=== PATIENT | male | born 1970 | race Caucasian/White ===

== ENCOUNTER 2021-10-25 15:40 | Emergency (ER) | payer OTHER ==
[2021-10-25] MEDS ORDERED: Sodium Chloride 0.9% 10 ML Syringe FLUSH PRN (18:11)
[2021-10-25] MEDS ORDERED: Acetaminophen 325 MG Tab PO ONE (18:13)
[2021-10-25] MEDS ORDERED: Sodium Chloride 0.9% 1,000 ML IV SCH (18:15)
== END 2021-10-25 20:40 | disposition home or self-care (01) ==
LOC: JD.ED 15:40
DX: U07.1 COVID-19 (principal); I10 Essential (primary) hypertension; K21.9 Gastro-esophageal reflux disease without esophagitis; F17.210 Nicotine dependence, cigarettes, uncomplicated; Z88.0 Allergy status to penicillin; Z79.82 Long term (current) use of aspirin; Z79.899 Other long term (current) drug therapy
CPT/HCPCS: 36415; 71045; 80053; 81003; 83605; 85007; 85027; 86140; 87040; 87635; 96360; 99283; A9270; J3490; J7030; U0002

== ENCOUNTER 2022-08-29 12:37 | Inpatient (IN) | payer BC ==
[2022-08-29] MEDS ORDERED: Ondansetron 4 MG/2 ML SDV IVPUSH ONE (13:05)
[2022-08-29] MEDS ORDERED: Sodium Chloride 0.9% 1,000 ML IV STA (13:05)
[2022-08-29] MEDS ORDERED: Sodium Chloride 0.9% 10 ML Syringe FLUSH PRN (13:05)
[2022-08-29] MEDS ORDERED: HYDROmorphone 0.5 MG/0.5 ML Syringe IVPUSH ONE (13:06)
[2022-08-29 13:18] LABS: BASOPHILS ABSOLUTE AUTO 0.03 K/mm3 (0.01-0.08); BASOPHILS PERCENT AUTO 0.3 % (0.1-1.2); EOSINOPHILS ABSOLUTE AUTO 0.14 K/mm3 (0.04-0.54); EOSINOPHILS PERCENT AUTO 1.5 (0.8-7.0); HEMATOCRIT 44.5 % (40.1-51.0); HEMOGLOBIN 15.1 gm/dl (13.7-17.5); IMMATURE GRAN ABSOLUTE AUTO 0.01 K/mm3 (0.00-0.10); IMMATURE GRAN PERCENT AUTO 0.1 % (<=1.0); LYMPHOCYTES ABSOLUTE AUTO 0.98 K/mm3 (1.32-3.57); LYMPHOCYTES PERCENT AUTO 10.6 % (21.8-53.1); MEAN CORPUSCULAR HEMOGLOBIN 30.5 pg (25.7-32.2); MEAN CORPUSCULAR HGB CONC 33.9 g/dl (32.2-35.5); MEAN CORPUSCULAR VOLUME 89.9 fl (79.0-92.2); MEAN PLATELET VOLUME 9.8 fl (9.4-12.3); MONOCYTES ABSOLUTE AUTO 0.79 K/mm3 (0.30-0.82); MONOCYTES PERCENT AUTO 8.5 % (5.3-12.2); NEUTROPHILS ABSOLUTE AUTO 7.31 K/mm3 (1.78-5.38); PLATELET COUNT,PLT 283 K/mm3 (163-337); RED BLOOD CELL COUNT 4.95 M/mm3 (4.63-6.08); WHITE BLOOD CELL COUNT,WBC 9.26 K/mm3 (4.23-9.07)
[2022-08-29 13:47] LABS: ANION GAP 11.2 (5-15); BUN/CREATININE RATIO 13.6 (14-18); CREATININE 1.1 mg/dL (0.7-1.3); POTASSIUM,K 4.2 mEq/L (3.5-5.1)
[2022-08-29 13:48] LABS: A/G RATIO 1.1 (1-2); ALBUMIN 3.7 g/dl (3.4-5.0); BILIRUBIN TOTAL 0.7 mg/dL (0.2-1.0); CALCIUM 8.8 mg/dL (8.5-10.1); EST CRCL DRUG DOSING (CG) 85.24 mL/min
[2022-08-29] MEDS ORDERED: Iopamidol 612 MG/ML 100 ML Bottle IVPUSH ONE (13:52)
[2022-08-29] MEDS ORDERED: Sodium Chloride 0.9% 10 ML Syringe FLUSH ONE (13:52)
[2022-08-29 14:56] LABS: APPEARANCE,URINE CLEAR (Clear); BILIRUBIN,URINE NEGATIVE (Negative); COLOR,URINE YELLOW (Yellow); GLUCOSE,URINE NEGATIVE (Negative); KETONES,URINE NEGATIVE (Negative); LEUKOCYTE ESTERASE,URINE NEGATIVE (Negative); NITRITE,URINE NEGATIVE (Negative); OCCULT BLOOD,URINE NEGATIVE (Negative); PROTEIN,URINE NEGATIVE (Negative)
[2022-08-29 15:01] LABS: AMORPHOUS SEDIMENT,URINE FEW /hpf (NOT SEEN); BACTERIA,URINE FEW /hpf (FEW); MUCUS,URINE FEW /hpf (FEW); RBC,URINE 0-5 /hpf (0-5); SQUAMOUS EPITHELIAL CELLS,UR NOT SEEN /hpf (0-5); WBC,URINE 0-5 /hpf (0-5)
[2022-08-29] MEDS ORDERED: HYDROmorphone 1 MG/ML Syringe IVPUSH ONE (16:03)
[2022-08-29] MEDS ORDERED: Acetaminophen 325 MG Tab PO PRN (19:00)
[2022-08-29] MEDS ORDERED: hydrALAZINE 20 MG/ML SDV IVPUSH PRN (19:00)
[2022-08-29] MEDS ORDERED: Heparin Sodium 5,000 Units/ML Vial SUBCUT SCH (19:00)
[2022-08-29] MEDS ORDERED: Ondansetron 4 MG/2 ML SDV IVPUSH PRN (19:00)
[2022-08-29] MEDS: Tamsulosin 0.4 MG Cap.ER PO SCH (20:31)
[2022-08-29] MEDS: Heparin Sodium 5,000 Units/ML Vial SUBCUT SCH (20:33)
[2022-08-29] MEDS: Dextrose 5%-0.45% NaCl 1,000 ML IV SCH (20:54)
[2022-08-29] MEDS: Pantoprazole 40 MG Tab.CR PO SCH (20:54)
[2022-08-29] MEDS: HYDROmorphone 1 MG/ML Syringe IVPUSH PRN (20:58)
[2022-08-30] MEDS: Acetaminophen/oxyCODONE 325-5 MG Tab PO PRN ×2 (00:08→13:04)
[2022-08-30] MEDS: Heparin Sodium 5,000 Units/ML Vial SUBCUT SCH ×3 (04:29→20:19)
[2022-08-30] MEDS: HYDROmorphone 1 MG/ML Syringe IVPUSH PRN ×2 (04:39→08:56)
[2022-08-30] MEDS: Dextrose 5%-0.45% NaCl 1,000 ML IV SCH ×2 (04:42→14:26)
[2022-08-30] MEDS: Pantoprazole 40 MG Tab.CR PO SCH ×2 (06:53→20:19)
[2022-08-30 08:06] LABS: BASOPHILS ABSOLUTE AUTO 0.03 K/mm3 (0.01-0.08); BASOPHILS PERCENT AUTO 0.7 % (0.1-1.2); EOSINOPHILS ABSOLUTE AUTO 0.19 K/mm3 (0.04-0.54); EOSINOPHILS PERCENT AUTO 4.5 (0.8-7.0); HEMATOCRIT 44.2 % (40.1-51.0); HEMOGLOBIN 14.9 gm/dl (13.7-17.5); LYMPHOCYTES ABSOLUTE AUTO 1.26 K/mm3 (1.32-3.57); LYMPHOCYTES PERCENT AUTO 30.1 % (21.8-53.1); MEAN CORPUSCULAR HEMOGLOBIN 30.7 pg (25.7-32.2); MEAN CORPUSCULAR HGB CONC 33.7 g/dl (32.2-35.5); MEAN CORPUSCULAR VOLUME 90.9 fl (79.0-92.2); MEAN PLATELET VOLUME 9.7 fl (9.4-12.3); MONOCYTES PERCENT AUTO 9.5 % (5.3-12.2); NEUTROPHILS ABSOLUTE AUTO 2.31 K/mm3 (1.78-5.38); NEUTROPHILS PERCENT AUTO 55.2 % (34.0-67.9); PLATELET COUNT,PLT 245 K/mm3 (163-337); RED BLOOD CELL COUNT 4.86 M/mm3 (4.63-6.08); WHITE BLOOD CELL COUNT,WBC 4.19 K/mm3 (4.23-9.07)
[2022-08-30] MEDS: Aspirin 81 MG Tab.EC PO SCH (08:08)
[2022-08-30] MEDS: Multivitamin Tab PO SCH (08:09)
[2022-08-30] MEDS: Tamsulosin 0.4 MG Cap.ER PO SCH (08:09)
[2022-08-30] MEDS: amLODIPine 10 MG Tab PO SCH (08:20)
[2022-08-30 08:51] LABS: ANION GAP 8.7 (5-15); CALCIUM 8.8 mg/dL (8.5-10.1); EST CRCL DRUG DOSING (CG) 90.99 mL/min; POTASSIUM,K 4.7 mEq/L (3.5-5.1)
[2022-08-31] MEDS: Dextrose 5%-0.45% NaCl 1,000 ML IV SCH (05:32)
[2022-08-31] MEDS: Pantoprazole 40 MG Tab.CR PO SCH ×2 (06:15→20:40)
[2022-08-31 06:25] LABS: BASOPHILS ABSOLUTE AUTO 0.04 K/mm3 (0.01-0.08); EOSINOPHILS ABSOLUTE AUTO 0.18 K/mm3 (0.04-0.54); EOSINOPHILS PERCENT AUTO 4.5 (0.8-7.0); HEMOGLOBIN 15.8 gm/dl (13.7-17.5); IMMATURE GRAN ABSOLUTE AUTO 0.01 K/mm3 (0.00-0.10); IMMATURE GRAN PERCENT AUTO 0.3 % (<=1.0); LYMPHOCYTES ABSOLUTE AUTO 0.95 K/mm3 (1.32-3.57); LYMPHOCYTES PERCENT AUTO 23.8 % (21.8-53.1); MEAN CORPUSCULAR HEMOGLOBIN 30.4 pg (25.7-32.2); MEAN CORPUSCULAR HGB CONC 33.6 g/dl (32.2-35.5); MEAN CORPUSCULAR VOLUME 90.4 fl (79.0-92.2); MEAN PLATELET VOLUME 10.2 fl (9.4-12.3); MONOCYTES ABSOLUTE AUTO 0.32 K/mm3 (0.30-0.82); NEUTROPHILS PERCENT AUTO 62.4 % (34.0-67.9); PLATELET COUNT,PLT 269 K/mm3 (163-337)
[2022-08-31 06:43] LABS: ANION GAP 10.6 (5-15); CALCIUM 9.1 mg/dL (8.5-10.1); EST CRCL DRUG DOSING (CG) 90.99 mL/min; POTASSIUM,K 4.6 mEq/L (3.5-5.1)
[2022-08-31] MEDS: Tamsulosin 0.4 MG Cap.ER PO SCH (08:31)
[2022-08-31] MEDS: Aspirin 81 MG Tab.EC PO SCH (08:31)
[2022-08-31] MEDS: Multivitamin Tab PO SCH (08:32)
[2022-08-31] MEDS: amLODIPine 10 MG Tab PO SCH (08:32)
[2022-08-31] MEDS: Heparin Sodium 5,000 Units/ML Vial SUBCUT SCH ×2 (11:45→20:40)
[2022-08-31] MEDS ORDERED: Lidocaine 1% with EPINEPHrine 1:100,000 20 ML MDV ONE (13:00)
[2022-08-31] MEDS ORDERED: Bupivacaine 0.5%/EPINEPHrine 1:200,000 50 ML MDV ONE (13:50)
[2022-08-31] MEDS ORDERED: Ondansetron 4 MG/2 ML SDV IVPUSH PRN (14:15)
[2022-08-31] MEDS ORDERED: fentaNYL 100 MCG/2 ML SDV IVPUSH PRN (14:15)
[2022-08-31] MEDS ORDERED: Midazolam 1 MG/ML 2 ML SDV ONE (14:26)
[2022-08-31] MEDS ORDERED: Propofol 200 MG/20 ML SDV ONE (14:26)
[2022-08-31] MEDS ORDERED: fentaNYL 250 MCG/5 ML SDV ONE (14:27)
[2022-08-31] MEDS ORDERED: Lidocaine 1% 2 ML ONE (14:27)
[2022-08-31] MEDS ORDERED: Rocuronium 50 MG/5 ML Vial ONE ×2 (14:27→15:06)
[2022-08-31] MEDS ORDERED: Sugammadex Sodium 200 MG/2 ML VIAL ONE (15:05)
[2022-08-31] MEDS ORDERED: ceFAZolin 2 GM Vial ONE (15:28)
[2022-08-31] MEDS ORDERED: Dexamethasone 4 MG/ML 5 ML MDV ONE (16:31)
[2022-08-31] MEDS ORDERED: Ondansetron 4 MG/2 ML SDV ONE (16:31)
[2022-08-31] MEDS ORDERED: Ketorolac 30 MG/ML SDV ONE (17:08)
[2022-08-31] MEDS ORDERED: Meperidine 50 MG/ML Vial IVPUSH ONE (17:31)
[2022-08-31] MEDS: HYDROmorphone 0.5 MG/0.5 ML Syringe IVPUSH PRN ×2 (17:41→17:48)
[2022-08-31] MEDS: HYDROmorphone 1 MG/ML Syringe IVPUSH PRN (21:38)
[2022-09-01] MEDS: Acetaminophen/oxyCODONE 325-5 MG Tab PO PRN (02:56)
[2022-09-01] MEDS: Heparin Sodium 5,000 Units/ML Vial SUBCUT SCH (06:09)
[2022-09-01] MEDS: Pantoprazole 40 MG Tab.CR PO SCH (06:14)
[2022-09-01 06:58] LABS: BASOPHILS ABSOLUTE AUTO 0.01 K/mm3 (0.01-0.08); BASOPHILS PERCENT AUTO 0.1 % (0.1-1.2); EOSINOPHILS PERCENT AUTO 0 (0.8-7.0); HEMATOCRIT 44.5 % (40.1-51.0); HEMOGLOBIN 15.1 gm/dl (13.7-17.5); IMMATURE GRAN ABSOLUTE AUTO 0.03 K/mm3 (0.00-0.10); IMMATURE GRAN PERCENT AUTO 0.2 % (<=1.0); LYMPHOCYTES PERCENT AUTO 6.9 % (21.8-53.1); MEAN CORPUSCULAR HEMOGLOBIN 30.3 pg (25.7-32.2); MEAN CORPUSCULAR HGB CONC 33.9 g/dl (32.2-35.5); MEAN CORPUSCULAR VOLUME 89.4 fl (79.0-92.2); MEAN PLATELET VOLUME 9.8 fl (9.4-12.3); MONOCYTES ABSOLUTE AUTO 0.62 K/mm3 (0.30-0.82); MONOCYTES PERCENT AUTO 4.7 % (5.3-12.2); NEUTROPHILS ABSOLUTE AUTO 11.54 K/mm3 (1.78-5.38); NEUTROPHILS PERCENT AUTO 88.1 % (34.0-67.9); PLATELET COUNT,PLT 272 K/mm3 (163-337); RED BLOOD CELL COUNT 4.98 M/mm3 (4.63-6.08)
[2022-09-01 07:16] LABS: A/G RATIO 1.1 (1-2); ALBUMIN 3.6 g/dl (3.4-5.0); ANION GAP 13.5 (5-15); BILIRUBIN TOTAL 0.7 mg/dL (0.2-1.0); BUN/CREATININE RATIO 9.1 (14-18); CALCIUM 9.2 mg/dL (8.5-10.1); CREATININE 1.1 mg/dL (0.7-1.3); EST CRCL DRUG DOSING (CG) 82.72 mL/min; POTASSIUM,K 4.5 mEq/L (3.5-5.1); PROTEIN TOTAL,TP 6.8 g/dl (6.4-8.2)
[2022-09-01] MEDS: Aspirin 81 MG Tab.EC PO SCH (08:40)
[2022-09-01] MEDS: Tamsulosin 0.4 MG Cap.ER PO SCH (08:40)
[2022-09-01] MEDS: amLODIPine 10 MG Tab PO SCH (08:40)
[2022-09-01] MEDS: Multivitamin Tab PO SCH (08:41)
== END 2022-09-01 10:00 | disposition home or self-care (01) | DRG 263 ==
LOC: SUPCPDRO 12:37 → JD.ED 12:37 → JD.MS 17:01
PROVIDERS: ADMIT Internal Medicine; ATTEND Internal Medicine
PROC: 0FT44ZZ Resection of Gallbladder, Percutaneous Endoscopic Approach (ICD-10-PCS; principal; 2022-08-31)
DX: K85.10 Biliary acute pancreatitis without necrosis or infection (principal); Z68.41 Body mass index [BMI] 40.0-44.9, adult; H54.7 Unspecified visual loss; I10 Essential (primary) hypertension; K80.20 Calculus of gallbladder without cholecystitis without obstruction; K21.9 Gastro-esophageal reflux disease without esophagitis; N40.0 Benign prostatic hyperplasia without lower urinary tract symptoms; G35 Multiple sclerosis; E83.42 Hypomagnesemia; K57.90 Diverticulosis of intestine, part unspecified, without perforation or abscess without bleeding; E66.01 Morbid (severe) obesity due to excess calories; Z88.0 Allergy status to penicillin; Z98.84 Bariatric surgery status; Z87.891 Personal history of nicotine dependence; Z98.890 Other specified postprocedural states; Z79.82 Long term (current) use of aspirin; Z79.899 Other long term (current) drug therapy
CPT/HCPCS: 36415; 74177; 74177-26; 76705; 76705-26; 80048; 80053; 81001; 83690; 84484; 85025; 93005; 93010; 96361; 96374; 96375; 96376; 99222; 99232; 99239; 99285; 99285-25; A9270-GY; J0690; J1100; J1170; J1644; J1885; J2250; J2405; J2704; J3010; J3490; J7030; J7042; Q9967